=== PATIENT | female | born 1965 | race Caucasian/White ===

== ENCOUNTER 2018-08-18 18:03 | Emergency (ER) | payer OTHER ==
--- NOTE | 2018-08-18 18:47 | EDM.PDOC ---
ED HPI GENERAL MEDICAL PROBLEM - General Chief Complaint: Upper Extremity Injury/Pain Stated Complaint: LEFT WRIST PAIN Time Seen by Provider: 08/18/18 18:44 Source of Information: Reports: Patient History Limitations: Reports: No Limitations - History of Present Illness INITIAL COMMENTS - FREE TEXT/NARRATIVE: HISTORY AND PHYSICAL: History of present illness: She is a 52-year-old female here with complaint of left wrist injury. He states that last night she was dancing when someone ran into her and she fell back and caught herself with her left hand. She states she felt some pain last night but report today's been much worse. She is otherwise in her usual state of health and has no other complaints today. Review of systems: As per history of present illness and below otherwise all systems reviewed and negative. Past medical history: As per history of present illness and as reviewed below otherwise noncontributory. Surgical history: As per history of present illness and as reviewed below otherwise noncontributory. Social history: No reported history of drug or alcohol abuse. Family history: As per history of present illness and as reviewed below otherwise noncontributory. Physical exam: General: Patient sitting comfortably in no acute distress and nontoxic appearing HEENT: Atraumatic, normocephalic, pupils reactive, negative for conjunctival pallor or scleral icterus, mucous membranes moist, throat clear, neck supple, nontender, trachea midline. No meningeal signs. Lungs: Clear to auscultation, breath sounds equal bilaterally, chest nontender. Heart: S1S2, regular, negative for clicks, rubs, or overt murmur. Extremities: Mild swelling and ecchymosis to the left wrist. Pain to palpation along the distal radius and carpals on the radial side including in the anatomic snuff box. Atraumatic, negative for cords or calf pain. Neurovascular unremarkable. Neuro: Awake, alert, oriented. Cranial nerves II through XII unremarkable. Cerebellum unremarkable. Motor and sensory unremarkable throughout. Exam nonfocal. Notes: Informed patient that her x-ray did not show any acute fracture or dislocation. Discussed with her that with her area of pain in the anatomical snuffbox that I would like to put her in a splint and have her follow-up with orthopedics. We discussed that she can take Tylenol and Motrin at home for pain management and patient proceeded to be upset with this and eloped from the ER. Diagnostics: Left wrist x-ray Therapeutics: Prescriptions: Impression: Left wrist pain Plan: Patient eloped from ED prior to receiving discharge. Definitive disposition and diagnosis as appropriate pending reevaluation and review of above. Left Hand Pain Score (Numeric/FACES): 10 - Related Data Allergies Allergy/AdvReac Type Severity Reaction Status Date / Time No Known Allergies Allergy Verified 08/18/18 18:36 Home Meds: Home Meds Allopurinol [Zyloprim] 300 mg PO DAILY 08/18/18 [History] predniSONE [Prednisone] 20 mg PO DAILY 08/18/18 [History] Past Medical History [employer]AM[employer]ER History: Reports: Musculoskeletal History: Reports: Gout, RA - Infectious Disease History Infectious Disease History: Reports: Chicken Pox Social & Family History - Tobacco Use Smoking Status *Q: Current Every Day Smoker Years of Tobacco use: 30 Packs/Tins Daily: 1 - Caffeine Use Caffeine Use: Reports: Coffee - Recreational Drug Use Recreational Drug Use: No Review of Systems - Review of Systems Review Of Systems: ROS reveals no pertinent complaints other than HPI. ED EXAM, GENERAL - Physical Exam Exam: See Below (see dictation) Course - Vital Signs Last Recorded V/S: Last Vital Signs Temp 35.4 C 08/18/18 18:33 Pulse 99 08/18/18 18:33 Resp 18 08/18/18 18:33 BP 147/84 H 08/18/18 18:33 Pulse Ox 97 08/18/18 18:33 - Orders/Labs/Meds Orders: Active Orders 24 hr Category Date Time Status Wrist 2V Lt [CR] Stat Exams 08/18/18 18:40 Taken Departure - Departure Time of Disposition: 20:23 Disposition: Home, Self-Care 01 Condition: Good Clinical Impression: Left wrist pain - Discharge Information Referrals: PCP,None [Primary Care Provider] - Forms: ED Department Discharge - My Orders Last 24 Hours: My Active Orders 08/18/18 18:40 Wrist 2V Lt [CR] Stat - Assessment/Plan Last 24 Hours: My Active Orders 08/18/18 18:40 Wrist 2V Lt [CR] Stat
--- NOTE | 2018-08-19 19:23 | CR ---
EXAM DATE: 08/18/18 PATIENT'S AGE: 52 Patient: JOSE KOLB Facility: [place], [place] Site . Site : [id number] Study: XRay Extremity Left wrist [id number]/30/2018 7:11:21 PM Ordering Physician: Doctor Luque Final Report: INDICATION: Fell. FINDINGS: AP and lateral views of the left wrist were obtained. There is no acute fracture seen or dislocation. There is a well corticated calcification off the ulnar styloid which could be an old chip fracture. There moderate degenerative changes in the 1st carpometacarpal joint. IMPRESSION: No acute bone abnormality. Dictated by Franko Flor MD @ 08/18/2018 8:12:15 PM Dictated by: Franko Flor MD @ 08/18/2018 20:12:40 (Electronic Signature) Report Signed by Proxy. STEPHANY
== END 2018-08-18 20:20 | disposition home or self-care (01) ==
LOC: MW.ED 18:03
DX: S60.212A Contusion of left wrist, initial encounter (principal); F17.210 Nicotine dependence, cigarettes, uncomplicated; Z79.899 Other long term (current) drug therapy; W19.XXXA Unspecified fall, initial encounter; Y93.41 Activity, dancing
CPT/HCPCS: 73100-26-LT; 73100-LT; 99283